=== PATIENT | female | born 1950 ===

== ENCOUNTER → 2017-03-24 | Outpatient (CLI) | payer MEDICARE, OTHER ==
[~2017-03-24] MED LIST: ALLO100 PO; ALLO300 PO; ATEN50; AZIT250 PO; BUPR100; CEFP200 PO; CITA20 PO; Cialis2.5 MG PO; FOLI1 PO; FOLI400 PO; FURO20 PO; FURO40 PO; Flonase 0.05% N16 GM; GUAI600T33 PO; HYDHOMSY PO; IRON PO; IRON325 MG PO; JAKAFI5 MG PO; L-LYSINE600 MG PO; LEVO750 PO; LEVSOD125 PO; LEVSOD175; LOPE2C PO; LORA1SY PO; LORTAB 5-325 M1 EACH PO; LOSA25 PO; LOSA50 PO; MAGCHL64ER; METO50ER PO; MONDOXYNE NL100 MG PO; MULVITMIND PO; Magnesium500 M1 PO; ONDA4 PO; ONDA8 PO; OXYC5 PO; PEGINTRON SQ; PRED20 PO; PROAIR RESPICL90 MCG IH; PROC10 PO; Restoril7.5 MG PO; TEMA15 PO; TORSE20 PO; [UNRECOGNIZED DRUG - CODE] SC; [UNRECOGNIZED DRUG - OTHER] PO; [UNRECOGNIZED DRUG - OTHER] PO; [UNRECOGNIZED DRUG - OTHER] PO
[2017-03-24 13:55] LABS: Adenovirus F 40/41 Not Detected (NOT DETECT); Astrovirus Not Detected (NOT DETECT); Campylobacter Sp Not Detected (NOT DETECT); Cryptosporidium Not Detected (NOT DETECT); Cyclospora Cayetanensis Not Detected (NOT DETECT); E. Coli O157 Not Detected (NOT DETECT); Entamoeba Histolytica Not Detected (NOT DETECT); Enteroaggregative E. coli-EAEC Not Detected (NOT DETECT); Enteropathogenic E. coli-EPEC Not Detected (NOT DETECT); Enterotoxigenic E. coli-ETEC Not Detected (NOT DETECT); Giardia Lamblia Not Detected (NOT DETECT); Norovirus GI/GII Not Detected (NOT DETECT); Plesiomonas Shigelloides Not Detected (NOT DETECT); Rotavirus A Not Detected (NOT DETECT); Salmonella Sp Not Detected (NOT DETECT); Sapovirus Not Detected (NOT DETECT); Shiga Toxin-prod E. coli-STEC Not Detected (NOT DETECT); Shigella/Enteroin E. coli-EIEC Not Detected (NOT DETECT); Vibrio Cholerae Not Detected (NOT DETECT); Vibrio Sp Not Detected (NOT DETECT); Yersinia Enterocolitica Not Detected (NOT DETECT)
== END | disposition home or self-care (01) ==
LOC: LAB SHORT 11:30
PROVIDERS: Physician Assistant Medical
DX: R19.7 Diarrhea, unspecified (principal)
CPT/HCPCS: 87507

== ENCOUNTER 2018-05-02 18:08 | Inpatient (IN) | payer MEDICARE, OTHER ==
[~2018-05-02] VITALS: Ht 172.7 cm; Wt 83.9 kg
[~2018-05-02 18:08] MED LIST changes: -ONDA8 PO
[2018-05-02] MEDS ORDERED: OXYC5 (18:40)
[2018-05-02 19:23] LABS: Hematocrit 43.2 % (33.0-51.0); Hemoglobin 12.7 g/dL (11.5-16.0); Mean Corpuscular HGB 25.1 pg (26.0-34.0); Mean Corpuscular HGB Conc 29.4 g/dL (31.5-36.5); Mean Corpuscular Volume 86 fL (80-100); NRBC ABSOLUTE 0.64 K/mm3 (0.00-0.02); NRBC Auto 13.9 /100 WBC (0.0-0.2); Platelet Count 74 K/mm3 (150-400); RDW Coefficient Variation 21.3 % (11.7-14.2); RDW Standard Deviation 64.5 fL (35.1-46.3); Red Blood Cell Count 5.05 M/mm3 (3.80-5.20); White Blood Cell Count 4.61 K/mm3 (4.00-11.30)
[2018-05-02 19:35] LABS: International Normalized Ratio 1.03; Prothrombin Time Results 10.9 Sec (9.7-11.5)
[2018-05-02 19:46] LABS: Source, Urine Clean Catch
[2018-05-02 19:50] LABS: BAND PERCENT MAN 9 % (0-8); BASOPHILS ABSOLUTE MAN 0.18 K/mm3 (0.00-0.23); BASOPHILS PERCENT MAN 4 % (0-2); EOSINOPHILS PERCENT MAN 0 % (0-6); LYMPHOCYTES ABSOLUTE MAN 1.42 K/mm3 (0.84-5.20); LYMPHOCYTES PERCENT MAN 31 % (21-46); METAMYELOCYTE ABSOLUTE MAN 0.13 K/mm3 (0.00-0.00); METAMYELOCYTE PERCENT MAN 3 % (0-0); MONOCYTES ABSOLUTE MAN 0.36 K/mm3 (0.16-1.47); MONOCYTES PERCENT MAN 8 % (4-13); MYELOCYTE ABSOLUTE MAN 0.04 K/mm3 (0.00-0.00); MYELOCYTE PERCENT MAN 1 % (0-0); NEUTROPHILS ABSOLUTE MAN 2.35 K/mm3 (1.96-9.15); PROMYELOCYTE ABSOLUTE MAN 0.09 K/mm3 (0.00-0.00); PROMYELOCYTE PERCENT MAN 2 % (0-0); SEG NEUTROPHILS PERCENT MAN 42 % (41-73); TOTAL CELLS COUNTED 100
[2018-05-02 19:51] LABS: Appearance, Urine Clear (Clear); Bilirubin, Urine Neg (Neg); Blood, Urine Neg (Neg); Color, Urine Yellow (P-Yellow); Glucose Qualitative, Urine Neg (Neg); Ketones, Urine Neg (Neg); Leukocyte Esterase, Urine 1+ (Neg); Nitrite, Urine Neg (Neg); Protein, Urine 2+ (Neg); Specific Gravity, Urine 1.015 (1.003-1.022); Urobilinogen, Urine NORM (Normal)
[2018-05-02 19:53] LABS: Albumin, Blood 3.3 g/dL (3.4-5.0); Bun/Creatinine Ratio 23.5 (12.0-20.0); Calcium, Blood 8.3 mg/dL (8.5-10.1); Creatinine, Blood 1.15 mg/dL (0.40-1.00); Globulin, Blood 3.4 g/dL (2.2-4.0); Potassium, Blood 4.6 mmol/L (3.5-5.5); Total Protein, Blood 6.7 g/dL (6.4-8.2)
[2018-05-02 20:04] LABS: Red Blood Cells, Urine Not Seen /hpf (0-2); Squamous Epithelial Cells Few /hpf (Few); White Blood Cells, Urine 0-2 /hpf (0-5)
[2018-05-02 20:05] LABS: Bacteria Not Seen /hpf
[2018-05-02] MEDS ORDERED: LEVSOD125 PO (21:45)
[2018-05-02] MEDS ORDERED: LORA.5 PO (21:46)
[2018-05-03] MEDS ORDERED: L-LYSINE600 MG PO (14:49)
[2018-05-03] MEDS ORDERED: LOPE2C PO (14:50)
--- NOTE | 2018-05-03 19:15 | NUR ---
SHE HAS BEEN ADMITTED TO 309 FROM THE ER. HER AND SON HAVE BEEN WITH HER. HER PLANS TO SPEND THE NIGHT. SHE WAS QUITE ANXIOUS ABOUT HER ABD PRIOR TO 'S DISCUSSION WITH HER AND HER . SHE FEELS RELIEVED NOW AND IS DEALING WITH SOME END OF LIFE FEELINGS AND DECISIONS. SHE HAS RECEIVED ROXANOL AND FENTANYL. SHE IS ALSO WEARING A FENTANYL PATCH. NO NAUSEA. SHE HAS SOB AND IS ON 2L NC. THE SOB IS ALSO PARTIALLY D/T THE ANXIETY. SHE HASN'T WANTED ANY ATIVAN YET. IV LASIX STARTED. BSC PUT NEXT TO THE BED. I ASKED HER TO USE THE CALL LIGHT FOR ASSIST TO GET OOB. SHE MOVES WELL. SHE HAS A CANE AT HOME BUT DOESN'T ALWAYS USE IT. SHE DID NOT EAT ANY DINNER. SHE SAYS SHE DRANK A LOT TODAY BECAUSE SHE IS SO THIRSTY. SHE UNDERSTANDS NOW THOUGH THAT SHE IS ON A FLUID RESTRICTION. REPORT GIVEN TO KEYSHA FOR FIREARMS SPECIALIST.
--- NOTE | 2018-05-04 04:21 | NUR ---
I AGREE WITH ESTEFANI KIRKLAND.
--- NOTE | 2018-05-04 04:30 | NUR ---
PTS RESTED IN BED ALL EVENING WITH SPOUSE SPENDING NIGHT. PT REQUIRED PAIN MEDS EVERY 2-4 HOURS FOR ABDOMINAL DISCOMFORT WITH RELIEF NOTED. PTS ABDOMEN TO ROUND, FRIM AND DISTENDED. PT REFUSED COLACE LAST NIGHT. PT IS DNR AND TENTATIVELY CONSIDERING HAVING HOSPICE SERVICES AT DISCHARGE. 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
[2018-05-04 05:36] LABS: Hematocrit 43.4 % (33.0-51.0); Hemoglobin 12.8 g/dL (11.5-16.0); Mean Corpuscular HGB 25.1 pg (26.0-34.0); Mean Corpuscular HGB Conc 29.5 g/dL (31.5-36.5); Mean Corpuscular Volume 85 fL (80-100); NRBC ABSOLUTE 0.39 K/mm3 (0.00-0.02); NRBC Auto 4.4 /100 WBC (0.0-0.2); Platelet Count 66 K/mm3 (150-400); RDW Coefficient Variation 21.5 % (11.7-14.2); RDW Standard Deviation 65.7 fL (35.1-46.3); Red Blood Cell Count 5.09 M/mm3 (3.80-5.20)
[2018-05-04 06:31] LABS: Albumin, Blood 2.8 g/dL (3.4-5.0); Albumin/Globulin Ratio 0.8 (0.8-1.8); Bilirubin, Total 2.6 mg/dL (0.1-1.0); Bun/Creatinine Ratio 19.8 (12.0-20.0); Calcium, Blood 8.1 mg/dL (8.5-10.1); Creatinine, Blood 2.27 mg/dL (0.40-1.00); Globulin, Blood 3.3 g/dL (2.2-4.0); Magnesium, Blood 2.5 mg/dL (1.6-2.4); Phosphorus, Blood 6.2 mg/dL (2.5-4.9); Potassium, Blood 5.7 mmol/L (3.5-5.5); Total Protein, Blood 6.1 g/dL (6.4-8.2)
[2018-05-04 07:09] LABS: BAND PERCENT MAN 2 % (0-8); BASOPHILS ABSOLUTE MAN 0.35 K/mm3 (0.00-0.23); BASOPHILS PERCENT MAN 4 % (0-2); EOSINOPHILS ABSOLUTE MAN 0.08 K/mm3 (0.00-0.68); EOSINOPHILS PERCENT MAN 1 % (0-6); LYMPHOCYTES ABSOLUTE MAN 1.95 K/mm3 (0.84-5.20); LYMPHOCYTES PERCENT MAN 22 % (21-46); METAMYELOCYTE ABSOLUTE MAN 0.08 K/mm3 (0.00-0.00); METAMYELOCYTE PERCENT MAN 1 % (0-0); MONOCYTES ABSOLUTE MAN 0.44 K/mm3 (0.16-1.47); MONOCYTES PERCENT MAN 5 % (4-13); MYELOCYTE ABSOLUTE MAN 0.08 K/mm3 (0.00-0.00); MYELOCYTE PERCENT MAN 1 % (0-0); NEUTROPHILS ABSOLUTE MAN 5.87 K/mm3 (1.96-9.15); SEG NEUTROPHILS PERCENT MAN 64 % (41-73); TOTAL CELLS COUNTED 100
--- NOTE | 2018-05-04 19:39 | NUR ---
SHIFT SUMMARY PATIENT A&O X3, SOME CONFUSION AT TIMES WITH HER WORDS. 1 PA W/ FWW. PATIENT HAS RATED PAIN 1 OUT OF 10 AND DENIED THE NEED FOR ANY MEDICATION THIS SHIFT. FENTANYL PATCH 25 MCG ON L SHOULDER. HAS BEEN DROWSY THROUGHOUT THE SHIFT WHICH SHE STATES IS NOT HER BASELINE. O2 @ 2L NC, SOB W/ ANY EXERTION. ABD VERY DISTENDED AND FIRM TO THE TOUCH. C/O OF ITCHING THIS SHIFT, DR. HERNANDEZ NOTIFIED. RN MEDICATED THROUGHOUT THE SHIFT PER May. NO OTHER ACUTE CHANGES. IS AT THE BEDSIDE.
--- NOTE | 2018-05-05 03:36 | NUR ---
PLEUREX CATH PATIENT/FAMILY HAS DECIDED TO GO AHEAD WITH THE PLEURX CATHETER. CONTACTED ANSWERSING SERVICE; OPERATED STATED THAT SHE WOULD NEED TO CALL AND NOTIFY PHYSICIAN NOW UNLESS IT WAS A CONSULT. WILL PASS ALONG TO DAY SHIFT RN.
--- NOTE | 2018-05-05 04:25 | NUR ---
SHIFT SUMMARY A/O X3, ABLE TO MAKE NEEDS KNOWN. COOPERATIVE WITH CARE. ANSWERS QUESTIONS APPROPRIATELY. STATED WAS SEEING BILLOWING SMOKE FROM AROUND THE DOOR AT BEGINNING OF SHIFT, BUT KNEW IT WAS NOT REAL. STATES THAT SHE HAD BEEN HALLUCINATING OFF AND ON. AFTER MUCH CONSIDERATION PATIENT/FAMILY HAS DECIDED TO GO AHEAD WITH THE PLEUREX PLACEMENT (SEE PREV SARAVANAN NOTE). APPEARED TO REST MUCH OF SHIFT. VSS. ON 2L VIA NC; LUNGS CTA; RESP EVEN; AND EQUAL RISE AND FALL. NO C/O SOB OR CP. ABDOMEN REMAINS DISTENDED AND FIRM; BT HYPOACTIVE X4; NON-TENDER TO PALP; NO N/V/D. BED IN LOWEST POSITION. AT BEDSIDE. CALL LIGHT AND BELONGINGS WITHIN REACH. WCTM. REPORT TO ONCOMING RN.
[2018-05-05 05:09] LABS: Hematocrit 37.5 % (33.0-51.0); Hemoglobin 11.2 g/dL (11.5-16.0); Mean Corpuscular HGB 25.1 pg (26.0-34.0); Mean Corpuscular HGB Conc 29.9 g/dL (31.5-36.5); Mean Corpuscular Volume 84 fL (80-100); NRBC ABSOLUTE 0.13 K/mm3 (0.00-0.02); NRBC Auto 1.5 /100 WBC (0.0-0.2); Platelet Count 52 K/mm3 (150-400); RDW Coefficient Variation 21.2 % (11.7-14.2); RDW Standard Deviation 63.4 fL (35.1-46.3); Red Blood Cell Count 4.46 M/mm3 (3.80-5.20); White Blood Cell Count 8.39 K/mm3 (4.00-11.30)
[2018-05-05 05:36] LABS: Albumin, Blood 2.4 g/dL (3.4-5.0); Anion Gap 9 mmol/L (6-16); Blood Urea Nitrogen 60 mg/dL (8-24); Bun/Creatinine Ratio 19.6 (12.0-20.0); CO2, Blood 22 mmol/L (21-32); Calcium, Blood 7.8 mg/dL (8.5-10.1); Chloride, Blood 99 mmol/L (98-108); Creatinine, Blood 3.06 mg/dL (0.40-1.00); Glomerular Filtration Rate 16 (60-); Glucose, Blood 117 mg/dL (70-99); Phosphorus, Blood 6.9 mg/dL (2.5-4.9); Potassium, Blood 6.5 mmol/L (3.5-5.5); Sodium, Blood 130 mmol/L (136-145)
--- NOTE | 2018-05-05 06:04 | NUR ---
CRITICAL VALUE NOTIFIED HOSPITALIST OF VALUE AND ASKED THAT I CALL [facility], BECAUSE SHE IS AN [facility] PATIENT. WILL CALL [facility]
--- NOTE | 2018-05-05 07:08 | NUR ---
PHYSICIAN CORRESPONDENCE NOTIFIED PHYSICIAN DR. HERNANDEZ ABOUT CRITICAL LAB OF POTASSIUM 6.5. SHE STATED TO D/C ALDACTONE. INCREASE FLUID RESTRICTION FROM 1000 TO 1500 ML TO FLUSH OUT KIDNEY'S. A DIETARY CONSULT TO EDUCATION ABOUT THE TYPES OF FOODS PATIENT SHOULD BE EATING ON A RENAL DIET.
--- NOTE | 2018-05-05 08:30 | NUR ---
PATIENT HAD A CRITICAL K OF 6.5 ON AIRCRAFT NAVIGATOR. RN CALLED DR. HERNANDEZ TO INFORM HER AT 0800 05/05/18. WILL CONTNIUE TO MONITOR.
[2018-05-05 18:04] LABS: Albumin, Blood 2.6 g/dL (3.4-5.0); Anion Gap 9 mmol/L (6-16); Blood Urea Nitrogen 62 mg/dL (8-24); CO2, Blood 22 mmol/L (21-32); Calcium, Blood 7.6 mg/dL (8.5-10.1); Chloride, Blood 98 mmol/L (98-108); Creatinine, Blood 2.69 mg/dL (0.40-1.00); Glomerular Filtration Rate 19 (60-); Glucose, Blood 110 mg/dL (70-99); Sodium, Blood 129 mmol/L (136-145)
--- NOTE | 2018-05-05 19:05 | NUR ---
PATIENT A&O X4. APPEARS VERY DROWSY THROUGHOUT THE SHIFT. RATES PAIN AT A 1 OUT OF 10 THIS SHIFT, DENIES NEED FOR PAIN MEDICATION. SOME SOB W/ EXERTION. O2 @ 2L NC. 1 PA TO BSC W/ FWW. CRITICAL K @ 1800 6.0, TRENDING DOWN FROM AM LABS. DR. HERNANDEZ NOTIFIED. FLUIDS RUNNING NS @ 150. FR 1,500 MLS. AT THE BEDSIDE. PATIENT RESTED THROUGHOUT THE SHIFT. NO OTHER ACUTE CHANGES.
--- NOTE | 2018-05-05 21:03 | NUR ---
PHYSICIAN CORRESPONDENCE REPORTED TO THIS RN FROM CIRCULATION DIRECTOR THAT MONITOR WAS SHOWING HR OF 166. RE-CHECKED APICALLY YEILDING 144. PATIENT RESTING IN BED AND ASYMPTOMATIC. NEW ORDERS PLACED. REPEAT BMP IN 1 HOUR AFTER ADMINISTRATION.
[2018-05-05 23:27] LABS: Bun/Creatinine Ratio 23.5 (12.0-20.0); Calcium, Blood 7.9 mg/dL (8.5-10.1); Creatinine, Blood 2.68 mg/dL (0.40-1.00); Potassium, Blood 6.1 mmol/L (3.5-5.5)
--- NOTE | 2018-05-06 04:41 | NUR ---
PHSYCIAN CORRESPONDENCE 0000 NOTIFIED PHYSICIAN THAT HR REMAINS ELEVATED. NEW ORDERS PLACED FOR IV METOPROLOL AND TELEMETRY.
--- NOTE | 2018-05-06 04:46 | NUR ---
PHYSICIAN CORRESPONDENCE [id number] EXPLAINED TO PHYSICIAN THAT HR CONTINUES TO INCREASE ONCE AGAIN. 145-150. STATED TO GIVE ANOTHER DOSE OF IV METOPROLOL.
[2018-05-06 05:03] LABS: BASOPHILS ABSOLUTE AUTO 0.12 K/mm3 (0.00-0.23); BASOPHILS PERCENT AUTO 1 % (0-2); EOSINOPHILS ABSOLUTE AUTO 0.01 K/mm3 (0.00-0.68); EOSINOPHILS PERCENT AUTO 0 % (0-6); Hemoglobin 11.6 g/dL (11.5-16.0); Mean Corpuscular HGB 25.1 pg (26.0-34.0); Mean Corpuscular Volume 86 fL (80-100); NRBC ABSOLUTE 0.11 K/mm3 (0.00-0.02); NRBC Auto 1.3 /100 WBC (0.0-0.2); Platelet Count 66 K/mm3 (150-400); RDW Coefficient Variation 21.2 % (11.7-14.2); RDW Standard Deviation 66.3 fL (35.1-46.3); Red Blood Cell Count 4.63 M/mm3 (3.80-5.20); White Blood Cell Count 8.39 K/mm3 (4.00-11.30)
--- NOTE | 2018-05-06 05:06 | NUR ---
SHIFT SUMMARY A/O, ABLE TO MAKE NEEDS KNOWN. COOPERATIVE WITH CARE. NO C/O PAIN/DISCOMFORT; DID REPLACE FENTANYL PATCH; PLACED TO R SCAPULA AREA. UP TO BSC WITH 1 ASSIST AND FWW. CRITICAL POTASSIUM NOTED THIS SHIFT; PHYSICIAN AWARE (SEE PREV SARAVANAN NOTE). INCREASED HR NOTED (SEE PREV SARAVANAN NOTE). NO REAL LONG LASTING CHANGE NOTED TO HR. REMAINS ON 2L VIA NC WITH O2 SATURATION >90%; RESPIRATIONS REMAIN EVEN WITH EQUAL RISE AND FALL. DOES STATE AT TIMES BECOMES DYSPNEIC. CONTINUES WITH NS @ 150 ML/HR. WCTM. BED IN LOWEST POSITION. AT BEDSIDE. CALL LIGHT AND BELONGINGS WITHIN REACH. REPORT TO ONCOMING RN.
[2018-05-06 05:27] LABS: IMMATURE GRAN ABSOLUTE AUTO 0.53 K/mm3 (0.00-0.10); IMMATURE GRAN PERCENT AUTO 6 % (0-1); LYMPHOCYTES ABSOLUTE AUTO 1.62 K/mm3 (0.84-5.20); LYMPHOCYTES PERCENT AUTO 19 % (21-46); MONOCYTES ABSOLUTE AUTO 0.66 K/mm3 (0.16-1.47); MONOCYTES PERCENT AUTO 8 % (4-13); NEUTROPHILS ABSOLUTE AUTO 5.45 K/mm3 (1.96-9.15); NEUTROPHILS PERCENT AUTO 65 % (41-73)
[2018-05-06 05:32] LABS: BAND PERCENT MAN 3 % (0-8); BASOPHILS ABSOLUTE MAN 0.16 K/mm3 (0.00-0.23); BASOPHILS PERCENT MAN 2 % (0-2); EOSINOPHILS PERCENT MAN 0 % (0-6); LYMPHOCYTES ABSOLUTE MAN 1.25 K/mm3 (0.84-5.20); LYMPHOCYTES PERCENT MAN 15 % (21-46); METAMYELOCYTE ABSOLUTE MAN 0.16 K/mm3 (0.00-0.00); METAMYELOCYTE PERCENT MAN 2 % (0-0); MONOCYTES PERCENT MAN 6 % (4-13); NEUTROPHILS ABSOLUTE MAN 6.29 K/mm3 (1.96-9.15); SEG NEUTROPHILS PERCENT MAN 72 % (41-73); TOTAL CELLS COUNTED 100
[2018-05-06 05:36] LABS: Magnesium, Blood 2.7 mg/dL (1.6-2.4)
[2018-05-06 06:05] LABS: Albumin, Blood 2.4 g/dL (3.4-5.0); Albumin/Globulin Ratio 0.6 (0.8-1.8); Bilirubin, Total 2.7 mg/dL (0.1-1.0); Bun/Creatinine Ratio 24.8 (12.0-20.0); Calcium, Blood 7.7 mg/dL (8.5-10.1); Creatinine, Blood 2.58 mg/dL (0.40-1.00); Globulin, Blood 3.7 g/dL (2.2-4.0); Potassium, Blood 6.3 mmol/L (3.5-5.5); Total Protein, Blood 6.1 g/dL (6.4-8.2)
--- NOTE | 2018-05-06 07:27 | NUR ---
PHYSICIAN CORRESPONDENCE [id number] CALL TO NOTIFY OF CRITICAL HIGH VALUE. PHONE BACK AND STATED THAT PATIENT IS UNDER [employer] AND THIS RN WOULD NEED TO CONTACT ATTENDING PHYSICIAN. DAY SHIFT RN MADE AWARE; STATED WOULD CALL ATTENDING.
--- NOTE | 2018-05-06 16:59 | NUR ---
PT AOX4 AND COOPERATIVE OF CARE. PT CONTINUES TO HAVE SOB AND DISTENDED ABDOMEN. HR ELEVATED AT START OF SHIFT UP TO 150 PER MANAGER ENTERPRISE LATER IN THE AM HR RETURNED TO THE 80s. DR HERNANDEZ WAS NOTIFIED OF ALL CHANGES AND INCREASED LASIX TO TID. PT KEEP COMFORTABLE BY CHANGING POSITIONS. PT IS ONE PERSON TO COMMODE. AT BEDSIDE. WILL CONTINUE TO MONITOR CLOSELY.
--- NOTE | 2018-05-07 04:35 | NUR ---
SHIFT SUMMARY A/O, ABLE TO MAKE NEEDS KNOWN. COOPERATIVE WITH CARE. NO C/O PAIN/DISCOMFORT; MANAGED BY SCHEDULED MEDICATIONS. ABDOMEN REMAINS DISTENDED WITH HYPOACTIVE BOWEL SOUNDS HEARD TO ALL 4 QUADRANTS. NON-TENDER TO PALPATION YET FIRM. NO C/O N/V/D. REMAINS ON 2L VIA NC WITH CLEAR LS T/O AND SATURATION REMAINS >90%; HOWEVER, AT TIMES BECOMES DYSPNEIC. STATES IS FEELING MUCH BETTER. TELE RUNNING NSR @ 66 PER PCU LEAD PERSON. APPEARED TO REST MUCH OF SHIFT. AT BEDSIDE. BED IN LOWEST POSITION. CALL LIGHT IN REACH. WCTM. REPORT TO ONCOMING RN.
[2018-05-07 07:24] LABS: Hematocrit 40.7 % (33.0-51.0); Mean Corpuscular HGB 24.9 pg (26.0-34.0); Mean Corpuscular HGB Conc 29.5 g/dL (31.5-36.5); Mean Corpuscular Volume 84 fL (80-100); NRBC Auto 1.1 /100 WBC (0.0-0.2); Platelet Count 72 K/mm3 (150-400); RDW Coefficient Variation 21.3 % (11.7-14.2); RDW Standard Deviation 63.3 fL (35.1-46.3); Red Blood Cell Count 4.82 M/mm3 (3.80-5.20); White Blood Cell Count 9.13 K/mm3 (4.00-11.30)
[2018-05-07 08:00] LABS: Sodium, Blood 133 mmol/L (136-145)
[2018-05-07 08:01] LABS: Anion Gap 11 mmol/L (6-16); Blood Urea Nitrogen 69 mg/dL (8-24); Bun/Creatinine Ratio 27.9 (12.0-20.0); CO2, Blood 22 mmol/L (21-32); Calcium, Blood 8.4 mg/dL (8.5-10.1); Chloride, Blood 100 mmol/L (98-108); Creatinine, Blood 2.47 mg/dL (0.40-1.00); Glomerular Filtration Rate 20 (60-); Glucose, Blood 107 mg/dL (70-99); Magnesium, Blood 2.9 mg/dL (1.6-2.4)
[2018-05-07 08:02] LABS: Albumin, Blood 2.7 g/dL (3.4-5.0)
[2018-05-07 08:03] LABS: Potassium, Blood 6.4 mmol/L (3.5-5.5)
--- NOTE | 2018-05-07 11:15 | NUR ---
PT AOX4, BUT VERY LETARGIC TODAY. LS DIMINISHED IN LOWER LOBES. ABDOMEN IN HARD AND APPEARS LARGER TODAY. +2 EDEMA. CRITICAL POTTASSIUM OF 6.[address] LYNN MESSAGE LEFT. LICO CONTINUE TO MONITOR.
[2018-05-07 17:24] LABS: Source, Urine Catheter
--- NOTE | 2018-05-07 17:26 | NUR ---
PT HAS BECOME INCREASINGLY TIRED AND HAVING TROUBLE WAKING UP AND RESPONDING. DR PRADHAN WAS NOTIFIED OF THIS CHANGE IN MENTATION AND THE INCREASE IN EDEMA. VITALS HAVE BEEN GOOD, BUT CONCERNS REVOLVE AROUND THIS MAJOR CHANGE IN BEHAVIOR. DR TOLEDO WAS CONSULTED AND ORDERS HAVE BEEN PLACED. PT IS BEING MONITORED CLOSELY FAMILY AT BEDSIDE. DUMONT PLACED AND PT TOLERATED WELL.
[2018-05-07 17:35] LABS: Appearance, Urine Clear (Clear); Bilirubin, Urine Neg (Neg); Blood, Urine Neg (Neg); Color, Urine Yellow (P-Yellow); Glucose Qualitative, Urine Neg (Neg); Ketones, Urine Neg (Neg); Leukocyte Esterase, Urine Neg (Neg); Nitrite, Urine Neg (Neg); Protein, Urine Neg (Neg); Urobilinogen, Urine NORM (Normal)
[2018-05-07 17:59] LABS: PCO2 Arterial 41.2 mmHg (35-45); PO2 Arterial 118 mmHg (80-100); pH Blood Arterial 7.32 (7.35-7.45)
--- NOTE | 2018-05-07 19:16 | NUR ---
PT HAD RAPID RESPONSE CALLED TOWARDS END OF SHIFTT. SISTER MANE CAME OUT TO THIS FACTORY MACHINE COMPUTER OPERATOR AND WAS CONCERNED ABOUT PT'S BREATHING. ULTRA SOUND TECH STATE SAME OBSERVATION. THIS FACTORY MACHINE COMPUTER OPERATOR NOTED PT'S BREATHNIG HAS SLOWED WITH LONG PAUSES. PT DID NOT WANT TO WAKE UP CALLED RAPID RESPONSE. CONTINUTED TO TRY TO GET PT TO RESPOND WITH STERNAL RUBS. PT WOULD ROLL HEAD AROUND STILL NO RESPONSE. DR TOLEDO ORDERED NARCAN AND PT IMMEDIATELY STARTED TO BECOME ALERT. TEAM STAYED IN ROOM UNTIL PT STABILIZED. PT IS STILL VERY ANXIOUS DUE TO EXPERIENCE. FAMILY IS AT BEDSIDE. FAMILY WISHES TO TRY AND SEE IF TRE'S TREATMENT CAN HELP PT. FAMILY DID STATE IF PT LOOKS LIKE SHE IS PASSING COMFORT MESSURES ARE WANTED AT THAT POINT. THIS HAS BEEN PASSED ON IN REPORT AND PT IS BEING MONITORED CLOSELY.
[2018-05-08 04:58] LABS: Hematocrit 37.4 % (33.0-51.0); Hemoglobin 10.7 g/dL (11.5-16.0); Mean Corpuscular HGB 24.8 pg (26.0-34.0); Mean Corpuscular HGB Conc 28.6 g/dL (31.5-36.5); NRBC ABSOLUTE 0.07 K/mm3 (0.00-0.02); NRBC Auto 1.2 /100 WBC (0.0-0.2); RDW Coefficient Variation 20.6 % (11.7-14.2); RDW Standard Deviation 64.6 fL (35.1-46.3); Red Blood Cell Count 4.31 M/mm3 (3.80-5.20); White Blood Cell Count 5.91 K/mm3 (4.00-11.30)
--- NOTE | 2018-05-08 04:58 | NUR ---
Rn summary: Patient wakes up to verbal stimuli, she does talk but seems to drift off easily. is at bedside, states she is able to turn better for him and seems less worn out. He states she is still having some visual hallucinations on and off. Pt has cox cath with 1800 out so far this shift. Pt is on tele with SR rate 74. Abdomen remains very large with ascites, bowel tones are present. Pt has had no c/o pain this shift. Lungs are clear. She has edema 2+ in her lower extremities. Call light is in reach. remains at bedside.
[2018-05-08 05:22] LABS: Mean Corpuscular Volume 87 fL (80-100)
[2018-05-08 05:23] LABS: Platelet Count 45 K/mm3 (150-400)
[2018-05-08 05:32] LABS: BAND PERCENT MAN 6 % (0-8); BASOPHILS ABSOLUTE MAN 0.41 K/mm3 (0.00-0.23); BASOPHILS PERCENT MAN 7 % (0-2); EOSINOPHILS PERCENT MAN 0 % (0-6); LYMPHOCYTES % ATYPICAL MANUAL 3 % (0-0); LYMPHOCYTES ABSOLUTE MAN 1.06 K/mm3 (0.84-5.20); LYMPHOCYTES PERCENT MAN 15 % (21-46); METAMYELOCYTE ABSOLUTE MAN 0.23 K/mm3 (0.00-0.00); METAMYELOCYTE PERCENT MAN 4 % (0-0); MONOCYTES ABSOLUTE MAN 0.11 K/mm3 (0.16-1.47); MONOCYTES PERCENT MAN 2 % (4-13); MYELOCYTE ABSOLUTE MAN 0.05 K/mm3 (0.00-0.00); MYELOCYTE PERCENT MAN 1 % (0-0); NEUTROPHILS ABSOLUTE MAN 4.01 K/mm3 (1.96-9.15); SEG NEUTROPHILS PERCENT MAN 62 % (41-73); TOTAL CELLS COUNTED 100
[2018-05-08 05:34] LABS: Alanine Aminotransfer (ALT/SGP 11 U/L (12-78); Albumin, Blood 2.6 g/dL (3.4-5.0); Albumin/Globulin Ratio 0.7 (0.8-1.8); Alk Phos 246 U/L (50-136); Anion Gap 10 mmol/L (6-16); Aspartate Aminotrans (AST/SGOT 25 U/L (12-37); Bilirubin, Total 1.9 mg/dL (0.1-1.0); Blood Urea Nitrogen 72 mg/dL (8-24); Bun/Creatinine Ratio 32.3 (12.0-20.0); CO2, Blood 23 mmol/L (21-32); Calcium, Blood 8.4 mg/dL (8.5-10.1); Chloride, Blood 101 mmol/L (98-108); Creatinine, Blood 2.23 mg/dL (0.40-1.00); Globulin, Blood 3.6 g/dL (2.2-4.0); Glomerular Filtration Rate 23 (60-); Glucose, Blood 104 mg/dL (70-99); Magnesium, Blood 2.8 mg/dL (1.6-2.4); Phosphorus, Blood 5.6 mg/dL (2.5-4.9); Potassium, Blood 5.9 mmol/L (3.5-5.5); Sodium, Blood 134 mmol/L (136-145); Total Protein, Blood 6.2 g/dL (6.4-8.2)
--- NOTE | 2018-05-08 17:34 | NUR ---
SHIFT SUMMARY NO ACUTE CHANGES IN CONDITION THIS SHIFT, PT HAS BEEN XFER'D TO CC. MEDICATED 1X FOR NAUSEA, NO OTHER COMPLAINTS OF ANY KIND. FAMILY AT BEDSIDE T/O SHIFT, ASSISTS PT WITH MEALS AND REPOSITIONING. PT APPEARS TO BE RESTING COMFORTABLY AT THIS TIME, WILL CONT TO MONITOR UNTIL REPORT GIVEN TO NOC RN.
--- NOTE | 2018-05-09 03:57 | NUR ---
SHIFT SUMMARY PT PAIN HAS INCREASED THIS SHIFT, AND SHE IS REQUESTING PAIN MEDICATION MORE FREQUENTLY. SHE REPORTS PAIN IN HER ABD AND HIPS. SHE REPORTS THAT ROXANOL HAS BEEN PROVIDING RELIEF. PT IS DROWSY MOST OF THE TIME, BUT IS STILL RESPONDING VERBALLY, AND IS ABLE TO ANSWER MY QUESTIONS APPROPRIATELY. SHE DECLINES TO BE REPOSITIONED T/O THE NIGHT. SHE STATES IT HURTS TOO MUCH TO MOVE. DUMONT IN PLACE PATENT AND DRAINING WITH ADEQUATE AMOUNTS OF YELLOW URINE. OVER 600 MLS OUT THIS SHIFT. FAMILY AT BEDSIDE AND IS ATTENTIVE TO PT AND NEEDS. COMFORT ASSESSED T/O THE NIGHT. WILL CONTINUE TO MONITOR AND REPORT TO ONCOMING RN.
--- NOTE | 2018-05-09 17:29 | NUR ---
SHIFT SUMMARY NO ACUTE CHANGES THIS SHIFT, FAMILY HAS REMIANED AT BEDSIDE T/O SHIFT, WILL CONT TO MONITOR UNTIL REPORT GIVEN TO NOC RN.
--- NOTE | 2018-05-09 17:46 | NUR ---
Met with Deisy's spouse, Maxwell at bedside. He spoke at length about their roscoe in a loving God. He accepts Deisy's passing, but admits "this is so hard." Provided anticipatory bereavement school counselor to good effect. Son and DIL also at bedside. Pt appears comfortable and well cared-for by nursing. Family very complimentary of staff. No needs presented. I will remain available.
--- NOTE | 2018-05-10 03:33 | NUR ---
SHIFT SUMMARY THE PT ADMITTED FOR INTRACTABLE PAIN. COMFORT CARE PT. CATHETER. MAY LEAVE IV OUT IF UNABLE TO RESTART. 22G IV TO R WRIST. 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 FAMILY IS AT BEDSIDE AT ALL TIMES. THE GOAL IS FOR THE PT TO GO HOME ON HOSPICE WITH [facility] WHEN POWER IS RESTORED AT HER FAMILIES HOME. THE PT PRESENTED TO THE ED WITH C/O ABD PAIN, NAUSEA, AND VOMITTING. THE PT HAS A HISTORY OF MYELODYSPLASTIC SYNDROME (MYELODYSPLASIA). THE PT IS NOTED TO HAVE MASSIVE SPLEENOMEGALY AND ASCITES BUT INITIALLY REFUSEDE A PARACENTESIS DUE TO WORRIES OF COMPLICATIONS. THE PT WAS LATER AGREEABLE TO HAVE A PLEURX CATHETER PLACED FOR ACCESS TO REMOVE FLUID REGULARLY FOR COMFORT BUT THE PROCEDURE WAS PUT ON HOLD DUE TO HYPERKALEMIA. THE PT HAS BEEN UNRESPONSIVE SO FAR THIS SHIFT WITH MINIMAL MOANS AND MOVEMENTS. THE FAMILY HAS BEEN AT PTS BEDSIDE SINCE ARRIVAL ON SHIFT. THE APPEARS TO REALLY BE STRUGGLING TO COME TO TERMS WITH THE TERMINAL DIAGNOSIS AND THE THOUGHT OF HIS LOSING HER 30 YEAR BRITO WITH HER ILLNESS. CONPASSIONATE SUPPORT PROVIDED TO THE AND FAMILY. MEDICATED FOR PAIN AND ANXIETY THIS SHIFT WHICH APPEARED TO BE EFFECTIVE. THE PT APPEARS TO BE RESTING COMFORTABLY AND PEACEFULLY AT THIS TIME. THE AND FAMILY HAVE REQUESTED THAT CARE ONLY BE PROVIDED WHEN NECESSARY AND HAVE COME OUT TO SPEAK TO THIS NURSE WHEN THEY FEEL THAT SHE IS UNCOMFORTABLY. CARE IS THEN PROVIDED BASED ON THEIR WISHES. WILL CONTINUE TO MONITOR.
--- NOTE | 2018-05-10 07:39 | NUR ---
COMFORT CARE PATIENT SLEEPING WITH NO SIGNS OF DISTRESS. RESPIRATIONS REGULAR, FACE RELAXED. FAMILY AT BEDSIDE. FAMILY HAS REQUESTED THAT THEY NOT BE DISTURBED AND WILL INFORM STAFF WHEN THEY WOULD LIKE THE PATIENT REPOSITIONED OR IF THE PATIENT SHOWS SIGNS OF DISTRESS. EDUCATION ON NONVERBAL SIGNS OF PAIN OR DISTRESS REINFORCED WITH FAMILY.
--- NOTE | 2018-05-10 11:25 | NUR ---
COMFORT CARE FAMILY DISCUSSED CONCERNS ABOUT PATIENT'S BREATHING AND SHARED THAT A FEAR OF THE PATIENT'S WAS NOT BEING ABLE TO BREATH AT THE END OF HER LIFE. RN PROVIDED EDUCATION AND EXPLAINATION OF MEDICATION FOR ANXIETY AND AIR HUNGER. FAMILY HAS REQUESTED PAIN AND ANXIETY MEDICATION BE ALTERNATED. PATIENT GIVEN ATIVAN FOR RESTLESSNESS.
--- NOTE | 2018-05-10 19:20 | NUR ---
SHIFT SUMMARY PATIENT RESTING COMFORTABLY WITH FAMILY AT BEDSIDE ALL OF SHIFT. PATIENT MEDICATED PAIN, AIR HUNGER, AND ANXIETY PER FAMILY REQUEST. PATIENT REPOSITIONED PER FAMILY REQUEST, FAMILY HAD ASKED NOT TO BE DISTURBED.
--- NOTE | 2018-05-11 02:11 | NUR ---
SUCTION PT NOTED TO HAVE SIGNIFICANTLY INCREASED ORAL SECRETION AT 0057. SUCTION SET UP AND PERFORMED PRN.
--- NOTE | 2018-05-11 05:05 | NUR ---
SHIFT SUMMARY PT CONDITIONED CHANGED THIS NIGHT FROM PREVIOUS NIGHT. PT WITH RATTLE SOUNDED RESPIRATIONS AND EXTENSIVE ORAL SECRETIONS. THIS NURSE ENTERING ROOM TO PROVIDE SUCTION, MEDS, AND REPOSITION APPROXIMATELY Q 45 MINUTES TO AN HOUR THROUGHOUT THE ENTIRE NIGHT. FAMILY AT BEDSIDE. PT NOTED TO HAVE SOME AIR HUNGER AND INCREASED RESPIRATIONS. WILL CONTINUE TO MONITOR.
--- NOTE | 2018-05-11 09:20 | NUR ---
DR. LÓPEZ JUST ASSESSED PT AND SPOKE WITH FAMILY. DR. LÓPEZ SUGGESTED INCREASING ROXINOL DOSING TO 15-20 DUE TO PT'S LABORED BREATHING AND TACHYCARDIA.
--- NOTE | 2018-05-11 09:33 | NUR ---
SUCTIONING AND SCOPALOMINE GIVEN NEEDED. YELLOW MODERATELY THICK SECRETIONS NOTED.
--- NOTE | 2018-05-11 11:11 | NUR ---
TIME OF 1054 PT FOUND TO BE NOT BREATHING AND WITHOUT A PULSE. FAMILY AT BEDSIDE. DR. LÓPEZ INFORMED. CHARGE NURSE NEVA NOTIFIED. FAMILY WOULD LIKE TO ALLOW SOME TIME FOR OTHER FAMILY TO ARRIVE BEFORE CALLING [facility] FOR [facility]SPORT.
--- NOTE | 2018-05-11 15:28 | NUR ---
PT TRANSPORTED TO [facility] BY [facility].
== END 2018-05-11 10:54 | DRG 812 ==
LOC: ER 18:08 → MEDS 18:09 → ERHOLD 18:09 → ER 18:09 → MEDS 05-03 14:28 → ERHOLD 05-03 14:28 → MEDS 05-05 10:44 → ERHOLD 05-05 10:44 → MEDS 05-06 00:23 → ENPENDDIS 05-08 16:41 → MEDS 05-09 03:59
PROVIDERS: Emergency Medicine; Family Medicine; Hospitalist; Internal Medicine; Psychiatry & Neurology Neurology; ADMIT Internal Medicine
DX: D46.9 Myelodysplastic syndrome, unspecified (principal); R18.0 Malignant ascites; N13.30 Unspecified hydronephrosis; N17.9 Acute kidney failure, unspecified; N13.8 Other obstructive and reflux uropathy; R64 Cachexia; G89.3 Neoplasm related pain (acute) (chronic); Z51.5 Encounter for palliative care; D69.6 Thrombocytopenia, unspecified; I27.20 Pulmonary hypertension, unspecified; D45 Polycythemia vera; N18.9 Chronic kidney disease, unspecified; I50.9 Heart failure, unspecified; D73.1 Hypersplenism; E87.5 Hyperkalemia; E87.70 Fluid overload, unspecified; K21.9 Gastro-esophageal reflux disease without esophagitis; I95.9 Hypotension, unspecified; E88.09 Other disorders of plasma-protein metabolism, not elsewhere classified; Z66 Do not resuscitate; R16.1 Splenomegaly, not elsewhere classified; E86.0 Dehydration; L29.9 Pruritus, unspecified; D63.0 Anemia in neoplastic disease
CPT/HCPCS: 36415; 36600; 74177; 76770; 80048; 80053; 80069; 81001; 81003; 82803; 82947; 83615; 83735; 84100; 84300; 85025; 85027; 85610; 85730; 87086; 90686; 96374-59; 96375; 96376; 99285-25; G0378; J0610; J1815; J1940; J2060; J2310; J2405; J2550; J3010; J7030; P9046; Q0163; Q0167; Q9967